=== PATIENT | male | born 2000 | race Caucasian/White ===

== ENCOUNTER 2024-06-24 16:45 | Emergency (ER) | payer OTHER ==
[~2024-06-24] VITALS: Ht 172.7 cm; Wt 59.9 kg
[2024-06-24 17:32] VITALS: BP 127/84; O2SAT 98
== END 2024-06-24 17:35 | disposition home or self-care (01) ==
LOC: ER 16:45
DX: Z04.1 Encounter for examination and observation following transport accident (principal); V89.2XXA Person injured in unspecified motor-vehicle accident, traffic, initial encounter; Y93.89 Activity, other specified; Y92.89 Other specified places as the place of occurrence of the external cause; Y99.8 Other external cause status
CPT/HCPCS: A4606; A4663